=== PATIENT | male | born 1945 | race Caucasian/White ===

== ENCOUNTER 2022-07-19 11:29 | Emergency (ER) | payer MEDICARE, BC, SELFPAY ==
[2022-07-19] VITALS (9 sets, daily range): BP systolic 137–160; BP diastolic 73–84; PULSE 53–65; RESP 16–20; TEMP 36.4; O2SAT 97–100; BMI 39.5
--- NOTE | 2022-07-19 11:39 | ECG_ITS ---
APPROVED REPORT Exam: Resting ECG HR:59 bpm ECG Measurements Heart Rate 59 AXES MA 117 P -68 QRSd 102 QRS 38 QT 390 T 42 QTc 389 Conclusion JUNCTIONAL BRADYCARDIA ABNORMAL RHYTHM ECG UNCONFIRMED REPORT Electronically signed by : Venkat Heart MD 07/19/2022 22:34:24
--- NOTE | 2022-07-19 12:59 | XR_ITS ---
FINAL REPORT CLINICAL HISTORY: r shoulder pain, hx of heart attacks FINDINGS: A single portable view of the chest was obtained. The heart size and pulmonary vascularity are within normal limits. The mediastinum is within normal limits. There is elevation of the left hemidiaphragm. No acute pulmonary abnormality is identified. The bony thorax is intact. IMPRESSION: No active cardiopulmonary disease. Reviewed, Interpreted and Dictated by Flavio Lizarraga III, MD Transcribed by Kristen Morris Authenticated and [facility]
--- NOTE | 2022-07-19 12:59 | [facility].EDGENADL ---
Discharge Plan Disposition Patient Disposition: Home, Self-Care Condition: Good Prescriptions Prescriptions: New methocarbamol 750 mg tablet 1,500 mg PO TID 5 Days Qty: 30 0RF Referrals Follow up/Referrals: Ramesh Jones MD [Primary Care Provider] - See instructions Clinical Impressions Clinical Impression: Musculoskeletal strain, Acute shoulder pain Discharge ED Provider: Prosper Delacruz General Adult HPI General Chief complaint: PAIN Stated complaint: Shoulder pain going into neck Time Seen by Provider: 07/19/22 12:00 Mode of Arrival: Ambulatory Source of Information: Patient and Relative Limitations: No Limitations Description of Symptoms (Recalled from ER Triage Doc. by RN): C/O bilateral shoulder pain that goes up the back of his neck into the back of his head since Tuesday, denies any chest pain or injury. History of Present Illness HPI narrative: This is a 76-year-old male with history of thoracic aortic aneurysm, which is stable, vertigo, chronic neck and back pain, [place] currently on aspirin, solitary kidney congenital who is presenting with right shoulder pain. Patient states that approximately 5 days prior to arrival, he began having midline upper back pain that radiates to his neck. Currently, denying the symptoms, but saying he has right-sided muscular shoulder pain. Denies vision changes, chest pain, shortness of breath, nausea, vomiting, diaphoresis, neurologic deficits, or any other concerning symptoms. Patient has tried Tylenol and ibuprofen without relief. Nothing in particular makes it worse. Currently 5 out of 10 and not bothering him much. Also denies any trauma. Related Data Previous Rx's Medication Instructions Recorded methocarbamol 750 mg tablet 1,500 mg PO TID 5 days #30 tabs 07/19/22 Allergies Allergy/AdvReac Type Severity Reaction Status Date / Time No Known Allergies Allergy Verified 07/19/22 13:16 [facility] Social History Smoking Status: Never smoker alcohol intake: never current occupational status: employed Travel in the last 8 weeks: None ROS Obtained: Yes All systems reviewed & no additional complaints except as documented Physical Exam General General appearance: alert and in no apparent distress Head Head exam: atraumatic, normocephalic and normal inspection Eye Eye exam: Present normal appearance, PERRL and EOMI ENT ENT exam: Present normal exam, normal oropharynx, mucous membranes moist, TM's normal bilaterally and normal external ear exam Neck Neck exam: Present normal inspection, full ROM and trachea midline; Absent meningismus or lymphadenopathy Chest Chest inspection: Present normal inspection and symmetric chest wall rise; Absent tenderness Respiratory Respiratory exam: Present normal lung sounds bilaterally; Absent respiratory distress Cardiovascular Cardiovascular exam: Present regular rate and normal rhythm; Absent JVD Abdominal Exam Abdominal exam: Present soft and normal bowel sounds; Absent distention, tenderness or guarding Extremities Exam Extremities exam: Present normal inspection, full ROM, tenderness (Tenderness to palpation right trapezius muscle. No midline tenderness to palpation or difficulty with range of motion of neck or shoulder.) and normal capillary refill; Absent calf tenderness Back Exam Back exam: Present normal inspection; Absent tenderness Neurological Exam Neurological exam: Present alert and oriented X3 Psychiatric Psychiatric exam: Present normal affect and normal mood Skin Skin exam: Present warm, dry, intact and normal color Lymphatic Lymphatic Findings: no adenopathy Medical Decision Making Medical Records Medical records reviewed: Yes I reviewed the patient's medical records. [place] Inquiry Pt receiving controlled substance: No Vital Signs: 07/19/22 11:37 07/19/22 12:01 07/19/22 12:31 Temperature 97.6 F Temperature Source Oral Pulse Rate 58 L 53 L Pulse Rate [Left Radial] 65
--- NOTE | 2022-07-19 13:22 | PC.NURSE ---
LAB HERE FOR BLOOD DRAW
[2022-07-19 13:52] LABS: Alanine Aminotransferase 21 U/L (12-78); Albumin Level 3.5 g/dl (3.5-5.0); Albumin/Globulin Ratio 1.2 (1.1-1.8); Alkaline Phosphatase 180 U/L (38-126); Anion Gap 10.7 mEq/L (5-15); Aspartate Amino Transferase 24 U/L (17-59); Bilirubin,Total 0.6 mg/dl (0.2-1.3); Blood Urea Nitrogen 15 mg/dl (9-20); Calcium 8.3 mg/dl (8.4-10.2); Carbon Dioxide 27 mmol/L (22.0-30.0); Chloride 104 mmol/L (98-107); Creatinine Clearance Estimated 89 mL/min (50-200); Estimated Glomerular Filt Rate 59 ml/min (>60); GFR (African American) 71 ML/MIN (>60); Globulin 2.9 g/dL (1.3-3.2); Glucose 112 mg/dl (74-100); Lipase 31 U/L (23-300); Potassium 3.7 mmoL/L (3.5-5.1); Sodium 138 mmol/L (136-145); Total Protein,Serum 6.4 g/dl (6.3-8.2)
[2022-07-19 14:23] LABS: Basophils % 0.3 % (0.1-2.0); Eosinophils # 0.3 K/mm3 (0.0-0.4); Eosinophils % 3.4 % (0.1-12.0); Hematocrit 40.4 % (42.0-52.0); Hemoglobin 13.1 g/dL (14.1-18.0); Lymphocytes # 1.8 K/mm3 (0.7-4.5); Lymphocytes % 19.8 % (10-50); Mean Corpuscular HGB Conc 32.3 g/dL (31.8-35.4); Mean Corpuscular Hemoglobin 29.6 pg (27.0-31.2); Mean Corpuscular Volume 91.4 fl (80-94); Mean Platelet Volume 8.4 fl (7.4-10.4); Monocytes # 0.5 K/mm3 (0.1-1.0); Monocytes % 5.9 % (1.7-9.3); Neutrophils # 6.3 K/mm3 (1.8-7.8); Neutrophils % 70.6 % (37.0-80.0); Platelet Count 221 K/mm3 (142-424); Red Blood Count 4.42 M/mm3 (4.60-6.20); Red Cell Distribution Width 12.9 % (11.5-17.5); White Blood Count 8.9 K/mm3 (4.8-10.8)
[2022-07-19 14:30] LABS: Troponin I < 0.01 ng/ml (0.00-0.034)
== END 2022-07-19 15:23 | disposition home or self-care (01) ==
PROVIDERS: Emergency Provider Emergency Medicine; PCP Emergency Medicine
DX: M25.512 Pain in left shoulder (principal); M25.511 Pain in right shoulder; M54.2 Cervicalgia
CPT/HCPCS: 71045; 80053; 83690; 84484; 85025; 93005; 99284

== ENCOUNTER 2023-06-22 13:36 | Outpatient (RCR) | payer MEDICARE, BC, SELFPAY | END 2023-08-23 14:00 | disposition home or self-care (01) | LOC: PT 13:36 | PROVIDERS: Visit Provider Nurse Practitioner Family | DX: I25.10 Atherosclerotic heart disease of native coronary artery without angina pectoris (principal) | CPT/HCPCS: 93798 ==